=== PATIENT | female | born 1955 | race Caucasian/White ===

== ENCOUNTER 2016-09-22 22:21 | Inpatient (IN) | payer BC ==
[~2016-09-22 22:21] MED LIST: ACAI BERRY500 MG PO; ACTOS30 MG; ACTOS45 MG; AMARYL1 M1 PO; AMBIEN CR12.5 MG/BO; AMBIEN10 M1 PO; AMBIEN10 MG; AMBIEN10 MG PO; AMPHETAMINE SAL PO; ASPIR 8181 MG; ASPIR-LOW81 M1 PO; ASPIRIN325 MG; ASPIRIN325 MG PO; BACTRIM DS TABL1 TAB; BACTRIM DS TABL1 TAB PO; CAL MAG ZINC +1 EAC1 PO; CHOLEST OFF450 M1 PO; CHOLEST OFF450 MG PO; DARVOCET A500 T1 TAB; DARVOCET-N 1001 TAB; DEMADEX10 MG PO; DORYX100 MG; DYNACIN100 M1 PO; EQL FISH OIL 1,1 CA1 PO; ESTRACE42.5 G1 TP; EXCEDRIN P.M. T1 TAB; FISH OIL SOFTGE1 CAP PO; FOLIC ACID0.8 MG PO; GEMFIBROZIL600 MG; GLUCOPHAGE500 MG; HYDROCODON-ACE1 EA16 PO; K-DUR20 ME1 PO; KEFLEX750 MG PO; LEVAQUIN750 MG PO; LISINOPRIL2.5 M1 PO; MAXIDEX5 ML; MAXZIDE 75/50 T1 TAB; MECLIZINE HCL25 M3 PO; MINOCIN100 M1 PO; MINOCIN100 M2 PO; NEURONTIN300 M1 PO; NEURONTIN300 MG; NEURONTIN800 MG; NORCO 5/325 TAB1 TAB PO; ONE DAILY FOR1 EAC7 PO; POTASSIUM CHLO20 ME3 PO; PREDNISONE20 M1 PO; PROMETH-CODEIN 65 ML PO; PROMETHAZINE HC25 M3 PO; PROZAC20 M3 PO; PROZAC40 MG PO; RELAFEN500 MG; SUPER B COMPLE150 MG PO; TORSEMIDE20 M2 PO; TRIAMTERENE; ULORIC80 MG PO; VALIUM5 M1 PO; WELCHOL625 MG; WELLBUTRIN XL300 MG PO; ZETIA10 MG; ZITHROMAX1 GM PO
[2016-09-22 23:00] LABS: ANION GAP 17 mmol/L (0-20); BLOOD UREA NITROGEN 45 mg/dl (6-24); CALCIUM 9.2 mg/dl (8.5-10.5); CARBON DIOXIDE-VENOUS 29 mmol/L (22-32); CHLORIDE 95 mmol/l (96-110); CREATININE 1.97 mg/dl (0.50-1.10); GLUCOSE 201 mg/dL (70-110); SODIUM 137 mmol/L (135-145); eGFR VALUE FOR BLACK 31 mL/Min
[2016-09-22 23:03] LABS: BASO % 0.3 % (0-2); EOS % 2.4 % (0-7); EOSINOPHIL ABSOLUTE COUNT 0.2 tho/cmm (0.0-0.7); HCT-HEMATOCRIT 33.3 % (34.0-49.0); HGB-HEMOGLOBIN 11.3 gm/dl (12.0-15.5); IMMATURE GRANULOCYTES ABSOLUTE 0.03 tho/cmm (0-0.03); IMMATURE GRANULOCYTES PERCENT 0.3 % (0-0.3); LYMPH % 30.6 % (20-45); MCH (MEAN CORPUSCULAR HGB) 28.6 pg (28.0-32.0); MCHC MEAN CORPUSCULAR HGB CONC 33.9 % (32.0-36.0); MCV (MEAN CELL VOLUME) 84.3 fl (82.0-96.0); MEAN PLATELET VOLUME 9.8 cmc (9.4-12.4); MONO % 5.7 % (0-12); MONOCYTE ABSOLUTE COUNT 0.6 tho/cmm (0.0-1.2); NEUTROPHIL ABSOLUTE COUNT 5.9 tho/cmm (1.6-8.0); NEUTROPHIL-AUTOMATED 5.9 tho/cmm (1.6-8.0); NEUTROPHILS % 60.7 % (40-80); PLATELET COUNT 299 tho/cmm (150-450); RED BLOOD COUNT 3.95 mil/cmm (4.00-5.20); RED CELL DISTRIBUTION WIDTH 13.6 % (12.4-16.4); WHITE BLOOD COUNT 9.7 tho/cmm (4.0-10.0)
[2016-09-22 23:08] LABS: POTASSIUM 3.7 mmol/L (3.7-5.1)
[2016-09-23] MEDS ORDERED: RESTORIL30 M1 PO (01:00)
[2016-09-23] MEDS ORDERED: ADDERALL 15 MG15 M1 PO (01:01)
[2016-09-23] MEDS ORDERED: PROMETH-CODEIN 65 ML PO (03:16)
[2016-09-24 06:48] LABS: ANION GAP 13 mmol/L (0-20); BLOOD UREA NITROGEN 31 mg/dl (6-24); CALCIUM 8.7 mg/dl (8.5-10.5); CARBON DIOXIDE-VENOUS 30 mmol/L (22-32); CHLORIDE 105 mmol/l (96-110); GLUCOSE 145 mg/dL (70-110); POTASSIUM 3.6 mmol/L (3.7-5.1); SODIUM 144 mmol/L (135-145); eGFR VALUE FOR BLACK 45 mL/Min
[2016-09-24 06:50] LABS: CREATININE 1.44 mg/dl (0.50-1.10)
[2016-09-24] MEDS ORDERED: ELIQUIS2.5 M1 PO (10:22)
[2016-09-24] MEDS ORDERED: BYSTOLIC5 M1 PO (10:27)
== END 2016-09-24 11:00 | DRG 310 ==
LOC: EDMED 22:21 → EMR2 09-23 02:01 → PCUB 09-23 03:02
PROVIDERS: Emergency Medicine; Physician Assistant Medical; ADMIT Internal Medicine Cardiovascular Disease
DX: I48.0 Paroxysmal atrial fibrillation (principal); E11.22 Type 2 diabetes mellitus with diabetic chronic kidney disease; N18.3 Chronic kidney disease, stage 3 (moderate); E78.5 Hyperlipidemia, unspecified; F32.9 Major depressive disorder, single episode, unspecified; Z87.891 Personal history of nicotine dependence; Z88.1 Allergy status to other antibiotic agents; Z88.5 Allergy status to narcotic agent; Z88.8 Allergy status to other drugs, medicaments and biological substances; Z79.82 Long term (current) use of aspirin; Z79.899 Other long term (current) drug therapy
CPT/HCPCS: A9540; A9558; J0282; J1650; J1815; J7030